=== PATIENT | male | born 1950 | race Two or more races ===

== ENCOUNTER 2023-05-09 05:18 | Emergency (ER) | payer MEDICARE, OTHER ==
[~2023-05-09] VITALS: Ht 167.6 cm; Wt 57.4 kg
[~2023-05-09 05:18] MED LIST: AMIO200T5 PO; CARV3.12 PO; COLC0.6T2 PO; DUTA0.5C PO; ENAL5TAB21 PO; ESOM40CA PO; HYDR50TA8 PO; LEVO50TA PO; TAMS-12 PO; TRAM50TA PO; VALS1TAB6 PO
[2023-05-09] MEDS ORDERED: LIDOCAINE 2% JEL UROJET 10 ML MM ONE (05:50)
[2023-05-09 07:43] LABS: APPEARANCE,URINE CLEAR (CLEAR); BILIRUBIN,URINE NEGATIVE (NEGATIVE); BLOOD, URINE TRACE-INTA Ery/uL (NEGATIVE); COLOR,URINE YELLOW (YELLOW); KETONES,URINE NEGATIVE (NEGATIVE); LEUKOCYTE ESTERASE ,URINE NEGATIVE (NEGATIVE); NITRITE, URINE NEGATIVE (NEGATIVE); PH,URINE 5.5 (5.0-8.0); PROTEIN,URINE NEGATIVE (NEGATIVE); UGLUCOSE NEGATIVE (NEGATIVE); UROBILINOGEN,URINE 0.2 EU/dL (0.2)
[2023-05-09 08:36] LABS: CALCIUM, SERUM 8.6 mg/dL (8.5-10.1); CARBON DIOXIDE 19 mmol/L (21-32); CHLORIDE 109 mmol/L (98-107); CREATININE 1.4 mg/dL (0.6-1.3); GLUCOSE 79 mg/dL (74-106); POTASSIUM 4.3 mmol/L (3.5-5.1); SODIUM SERUM 138 mmol/L (136-145); UREA NITROGEN, BLOOD 16 mg/dL (7-18)
[2023-05-09 08:41] LABS: ALANINE AMINOTRANSFERASE 43 U/L (12-78); ALBUMIN 2.7 g/dL (3.4-5.0); ALKALINE PHOSPHATASE 96 U/L (46-116); ASPARTATE AMINOTRANSFERASE 42 U/L (15-37); BILIRUBIN,DIRECT 0.1 mg/dL (0.0-0.2); BILIRUBIN,TOTAL 0.3 mg/dL (0.2-1.0); TOTAL PROTEIN, SERUM 5.8 g/dL (6.4-8.2)
[2023-05-09 09:23] LABS: BASOPHILS % (AUTO) 0.6 % (0.0-2.0); EOSINOPHILS # (AUTO) 0.1 K/uL (0.0-0.7); EOSINOPHILS % (AUTO) 2.2 % (0.0-6.0); HEMATOCRIT 25 % (39-51); HEMOGLOBIN 8.2 g/dL (13.5-17.5); LYMPHOCYTES # (AUTO) 0.4 K/uL (0.8-4.8); LYMPHOCYTES % (AUTO) 10.4 % (20.0-44.0); MEAN CORPUSCULAR HEMOGLOBIN 32 PG (26.0-33.0); MEAN CORPUSCULAR HGB CONC 32 g/dl (31.0-36.0); MEAN CORPUSCULAR VOLUME 98 fL (80-96); MONOCYTES # (AUTO) 0.4 K/uL (0.1-1.30); NEUTROPHILS # (AUTO) 2.9 K/uL (1.8-8.9); NEUTROPHILS % (AUTO) 75.8 % (43.0-81.0); PLATELET COUNT (AUTO) 150 K/uL (150-450); RED BLOOD CELL COUNT(AUTO) 2.59 MIL/uL (4.5-6.0); RED CELL DISTRIBUTION WIDTH 24.2 % (11.5-15.0); WHITE BLOOD COUNT (AUTO) 3.8 K/uL (4.3-11.0)
[2023-05-09 10:40] VITALS: BP 127/67; TEMP 98.1; O2SAT 98
== END 2023-05-09 10:41 | disposition home or self-care (01) ==
LOC: ER 05:29
DX: R33.9 Retention of urine, unspecified (principal); R06.02 Shortness of breath; R53.83 Other fatigue; I10 Essential (primary) hypertension; Z79.899 Other long term (current) drug therapy; Z85.46 Personal history of malignant neoplasm of prostate; Z85.118 Personal history of other malignant neoplasm of bronchus and lung
CPT/HCPCS: 99285; 71045; 51702; 85025; 80048; 87086; 80076; 81003; 36415; 84484; 83880; 93005; J3490

== ENCOUNTER 2024-05-10 12:32 | Inpatient (IN) | payer MEDICARE, OTHER ==
[~2024-05-10] VITALS: Ht 167.6 cm; Wt 54.0 kg
[2024-05-10] MEDS ORDERED: LORAZEPAM INJ 2 MG/ML VIAL ONE (16:23)
[2024-05-10] MEDS: LORAZEPAM INJ 2 MG/ML VIAL IV ONE ×2 (16:28→16:34)
[2024-05-10] MEDS ORDERED: MAGNESIUM HYDROXIDE 30 ML UDC PO PRN (16:30)
[2024-05-10] MEDS ORDERED: ACETAMINOPHEN 325 MG TABLET PO PRN (16:30)
[2024-05-10] MEDS ORDERED: Z GUARD REMEDY 4 OZ OINT TP PRN (16:30)
[2024-05-10] MEDS ORDERED: MAG HYDROX/AL HYDROX/SIMETH 30 ML UDC PO PRN (16:30)
[2024-05-10] MEDS ORDERED: ONDANSETRON HCL/PF 4 MG/2 ML VIAL IVP PRN (16:30)
[2024-05-10] MEDS ORDERED: ROSU20TA32 PO (16:45)
[2024-05-10] MEDS ORDERED: ASPI-1420 PO (16:45)
[2024-05-10] MEDS ORDERED: ZOLP5TAB2 PO (16:45)
[2024-05-10] MEDS ORDERED: FOLI0.4T6 PO (16:45)
[2024-05-10] MEDS ORDERED: FERR325T24 PO (16:45)
[2024-05-10] MEDS ORDERED: TERA2CAP4 PO (16:45)
[2024-05-10] MEDS ORDERED: OMEP40CA21 PO (16:45)
[2024-05-10 16:56] LABS: BASOPHILS % (AUTO) 0.5 % (0.0-2.0); EOSINOPHILS # (AUTO) 0.1 K/uL (0.0-0.7); EOSINOPHILS % (AUTO) 1.5 % (0.0-6.0); HEMATOCRIT 34 % (39-51); HEMOGLOBIN 10.9 g/dL (13.5-17.5); LYMPHOCYTES # (AUTO) 0.7 K/uL (0.8-4.8); LYMPHOCYTES % (AUTO) 9.1 % (20.0-44.0); MEAN CORPUSCULAR HEMOGLOBIN 28 PG (26.0-33.0); MEAN CORPUSCULAR HGB CONC 32 g/dl (31.0-36.0); MEAN CORPUSCULAR VOLUME 87 fL (80-96); MONOCYTES # (AUTO) 0.5 K/uL (0.1-1.30); MONOCYTES % (AUTO) 6.6 % (2.0-12.0); NEUTROPHILS # (AUTO) 6.6 K/uL (1.8-8.9); NEUTROPHILS % (AUTO) 82.3 % (43.0-81.0); PLATELET COUNT (AUTO) 196 K/uL (150-450); RED BLOOD CELL COUNT(AUTO) 3.94 MIL/uL (4.5-6.0); RED CELL DISTRIBUTION WIDTH 15.6 % (11.5-15.0)
[2024-05-10 17:14] LABS: CALCIUM, SERUM 9.6 mg/dL (8.5-10.1); CARBON DIOXIDE 18 mmol/L (21-32); CHLORIDE 104 mmol/L (98-107); CREATININE 1.2 mg/dL (0.6-1.3); GLUCOSE 91 mg/dL (74-106); POTASSIUM 4.5 mmol/L (3.5-5.1); SODIUM SERUM 139 mmol/L (136-145); UREA NITROGEN, BLOOD 24 mg/dL (7-18)
[2024-05-10] MEDS: CEFEPIME 1 GM in IV D5W 50 ML IV SCH (17:22)
[2024-05-10 18:09] LABS: INR 1.16 (0.91-1.10); PARTIAL THROMBOPLASTIN TIME 29.6 SEC (24.3-34.3); PROTHROMBIN TIME 12.2 SECS (9.2-11.1)
[2024-05-10 20:25] VITALS: BP 136/73; TEMP 99
[2024-05-10 21:00] VITALS: O2SAT 98
[2024-05-10] MEDS: CARVEDILOL 3.125 MG TABLET PO SCH (21:40)
[2024-05-10] MEDS: ZOLPIDEM TARTRATE 5 MG TABLET PO SCH (21:40)
[2024-05-10] MEDS: ENALAPRIL MALEATE (5 MG) 5 MG TABLET PO SCH (21:40)
[2024-05-10] MEDS: COLCHICINE 0.6 MG TABLET PO SCH (21:40)
[2024-05-10] MEDS: TAMSULOSIN 0.4 MG CAP.SR.24H PO SCH (21:48)
[2024-05-10] MEDS: TERAZOSIN HCL 1 MG CAPSULE PO SCH (21:48)
[2024-05-10] MEDS: ATORVASTATIN 40 MG TABLET PO SCH (21:49)
[2024-05-10 23:35] VITALS: O2SAT 98
[2024-05-11] VITALS (8 sets, daily range): BP systolic 115–151; BP diastolic 64–76; TEMP 97.5–98.2; O2SAT 93–99
[2024-05-11] MEDS: LORAZEPAM INJ 2 MG/ML VIAL IV PRN (00:28)
[2024-05-11 07:07] LABS: BASOPHILS % (AUTO) 0.7 % (0.0-2.0); EOSINOPHILS % (AUTO) 0.5 % (0.0-6.0); HEMATOCRIT 36 % (39-51); HEMOGLOBIN 11.3 g/dL (13.5-17.5); LYMPHOCYTES # (AUTO) 0.5 K/uL (0.8-4.8); LYMPHOCYTES % (AUTO) 6.3 % (20.0-44.0); MEAN CORPUSCULAR HEMOGLOBIN 28 PG (26.0-33.0); MEAN CORPUSCULAR HGB CONC 31 g/dl (31.0-36.0); MEAN CORPUSCULAR VOLUME 88 fL (80-96); MONOCYTES # (AUTO) 0.6 K/uL (0.1-1.30); MONOCYTES % (AUTO) 7.6 % (2.0-12.0); NEUTROPHILS # (AUTO) 6.2 K/uL (1.8-8.9); NEUTROPHILS % (AUTO) 84.9 % (43.0-81.0); PLATELET COUNT (AUTO) 199 K/uL (150-450); RED BLOOD CELL COUNT(AUTO) 4.09 MIL/uL (4.5-6.0); RED CELL DISTRIBUTION WIDTH 15.4 % (11.5-15.0); WHITE BLOOD COUNT (AUTO) 7.3 K/uL (4.3-11.0)
[2024-05-11] MEDS: LEVOTHYROXINE SODIUM 50 MCG TABLET PO SCH (07:30)
[2024-05-11] MEDS: PANTOPRAZOLE 40 MG TABLET.DR PO SCH (07:30)
[2024-05-11 08:11] LABS: CALCIUM, SERUM 9.6 mg/dL (8.5-10.1); CARBON DIOXIDE 23 mmol/L (21-32); CHLORIDE 107 mmol/L (98-107); CREATININE 1.1 mg/dL (0.6-1.3); GLUCOSE 96 mg/dL (74-106); MAGNESIUM 2.2 mg/dL (1.8-2.4); PHOSPHORUS 3.4 mg/dL (2.5-4.9); POTASSIUM 3.8 mmol/L (3.5-5.1); SODIUM SERUM 138 mmol/L (136-145); UREA NITROGEN, BLOOD 25 mg/dL (7-18)
[2024-05-11] MEDS: ASPIRIN EC 81 MG TABLET.DR PO SCH (08:40)
[2024-05-11] MEDS: DUTASTERIDE (0.5 MG) 0.5 MG CAPSULE PO SCH (08:40)
[2024-05-11] MEDS: AMIODARONE HCL 200 MG TABLET PO SCH (08:41)
[2024-05-11] MEDS: FERROUS SULFATE (325 MG) 325 MG/TAB TABLET PO SCH (08:41)
[2024-05-11] MEDS: FOLIC ACID 1 MG TABLET PO SCH (08:42)
[2024-05-11] MEDS: HYDROCHLOROTHIAZIDE 25 MG TABLET PO SCH (08:42)
[2024-05-11] MEDS ORDERED: Medication Not On Formulary EA (Esomeprazole Mag Trihydrate (Nexium) 40 MG) PO SCH (09:00)
[2024-05-11] MEDS ORDERED: VALSARTAN 80 MG TABLET PO SCH (09:00)
[2024-05-11] MEDS: IV D5/0.45 NACL 1,000 ML IV PRN (13:36)
[2024-05-11 16:59] LABS: PROTEIN, BODY FLUID 4.7 G/DL
[2024-05-11 17:33] LABS: WBC, BODY FLUID 776 /cu. mm. (0-200)
[2024-05-11 17:42] LABS: APPEARANCE,SPUN,BODY FLUID CLEAR (CLEAR); TOTAL VOLUME,BODY FLUID 1460 mL
[2024-05-11] MEDS ORDERED: DICLOFENAC TOPICAL 100 GM TUBE TP PRN ×2 (18:00→18:30)
[2024-05-11 19:45] LABS: MACROPHAGES, BODY FLUID 10; POLYNUCLEAR, BODY FLUID 4 % (0-25)
[2024-05-11] MEDS: OLANZAPINE 10 MG VIAL IM ONE (23:53)
[2024-05-12] VITALS (7 sets, daily range): BP systolic 124–151; BP diastolic 68–89; TEMP 98.2–98.8; O2SAT 92–98
[2024-05-12] MEDS ORDERED: AMINO ACIDS IV PRN (11:30)
[2024-05-12] MEDS ORDERED: TPN/PPN PER PHARMACY IV PRN (11:30)
[2024-05-12] MEDS ORDERED: TPN ADDITIVES IV PRN (11:30)
[2024-05-12] MEDS ORDERED: DEXTROSE 5% IV PRN (11:30)
[2024-05-12] MEDS ORDERED: DEXTROSE 50%-WATER 50 ML DISP.SYRIN IV PRN (12:00)
[2024-05-12] MEDS ORDERED: TPN/PPN PER PHARMACY XX PRN (12:00)
[2024-05-12] MEDS: BLOOD SUGAR DIAGNOSTIC 1 EACH STRIP IN SCH (12:19)
[2024-05-12] MEDS: INSULIN REGULAR, HUMAN 100 UNIT/ML 3 ML VIAL SQ PRN (12:21)
[2024-05-12 12:49] LABS: CALCIUM, SERUM 10.2 mg/dL (8.5-10.1); CARBON DIOXIDE 18 mmol/L (21-32); CHLORIDE 108 mmol/L (98-107); CREATININE 1.1 mg/dL (0.6-1.3); GLUCOSE 147 mg/dL (74-106); MAGNESIUM 2.3 mg/dL (1.8-2.4); PHOSPHORUS 3.4 mg/dL (2.5-4.9); POTASSIUM 3.6 mmol/L (3.5-5.1); SODIUM SERUM 140 mmol/L (136-145); UREA NITROGEN, BLOOD 29 mg/dL (7-18)
[2024-05-12] MEDS: PPN BAG #1 IV SCH ×2 (14:03→14:35)
[2024-05-12] MEDS: OLANZAPINE 10 MG VIAL IM SCH (16:12)
[2024-05-12] MEDS ORDERED: TRAZODONE 50 MG TABLET PO PRN (22:00)
[2024-05-13] VITALS (8 sets, daily range): BP systolic 136–154; BP diastolic 79–107; TEMP 97.9–98.6; O2SAT 94–98
[2024-05-13] MEDS: PPN BAG #2 IV SCH (07:42)
[2024-05-13 07:55] LABS: CALCIUM, SERUM 10.1 mg/dL (8.5-10.1); CARBON DIOXIDE 18 mmol/L (21-32); CHLORIDE 109 mmol/L (98-107); CREATININE 0.9 mg/dL (0.6-1.3); GLUCOSE 134 mg/dL (74-106); MAGNESIUM 2.1 mg/dL (1.8-2.4); PHOSPHORUS 2.2 mg/dL (2.5-4.9); POTASSIUM 3.2 mmol/L (3.5-5.1); SODIUM SERUM 144 mmol/L (136-145); UREA NITROGEN, BLOOD 34 mg/dL (7-18)
[2024-05-13] MEDS: POTASSIUM PHOSPHATE MM 7.5 MMOL in IV NS 0.9% 100 ML IV SCH (09:04)
[2024-05-13] MEDS: POTASSIUM CL. PREMIX PERIPHER. 50 ML IV SCH (15:20)
[2024-05-13 21:51] LABS: TRIGLYCERIDES 71 mg/dL (30-150)
[2024-05-14] VITALS: BP 141/69; TEMP 97.8; O2SAT 96
[2024-05-14] MEDS ORDERED: PPN BAG #3 IV SCH (00:13)
[2024-05-14] MEDS: PPN BAG #3 IV SCH (00:20)
[2024-05-14 04:00] VITALS: BP 136/61; TEMP 97.9; O2SAT 96
[2024-05-14 07:22] LABS: BASOPHILS % (AUTO) 0.1 % (0.0-2.0); HEMATOCRIT 34 % (39-51); HEMOGLOBIN 10.9 g/dL (13.5-17.5); LYMPHOCYTES # (AUTO) 0.5 K/uL (0.8-4.8); LYMPHOCYTES % (AUTO) 4.9 % (20.0-44.0); MEAN CORPUSCULAR HEMOGLOBIN 28 PG (26.0-33.0); MEAN CORPUSCULAR HGB CONC 33 g/dl (31.0-36.0); MEAN CORPUSCULAR VOLUME 85 fL (80-96); MONOCYTES # (AUTO) 0.9 K/uL (0.1-1.30); MONOCYTES % (AUTO) 8.7 % (2.0-12.0); NEUTROPHILS # (AUTO) 8.8 K/uL (1.8-8.9); NEUTROPHILS % (AUTO) 86.3 % (43.0-81.0); PLATELET COUNT (AUTO) 236 K/uL (150-450); RED BLOOD CELL COUNT(AUTO) 3.93 MIL/uL (4.5-6.0); RED CELL DISTRIBUTION WIDTH 15.4 % (11.5-15.0); WHITE BLOOD COUNT (AUTO) 10.1 K/uL (4.3-11.0)
[2024-05-14 08:00] VITALS: BP 142/91; TEMP 98.1; O2SAT 96
[2024-05-14 08:07] LABS: CALCIUM, SERUM 10.3 mg/dL (8.5-10.1); CARBON DIOXIDE 16 mmol/L (21-32); CHLORIDE 111 mmol/L (98-107); CREATININE 1.1 mg/dL (0.6-1.3); GLUCOSE 125 mg/dL (74-106); MAGNESIUM 2.1 mg/dL (1.8-2.4); PHOSPHORUS 2.9 mg/dL (2.5-4.9); POTASSIUM 3.2 mmol/L (3.5-5.1); SODIUM SERUM 143 mmol/L (136-145); UREA NITROGEN, BLOOD 44 mg/dL (7-18)
[2024-05-14] MEDS: CEFEPIME 2 GM in IV D5W 100 ML IV SCH (10:31)
[2024-05-14] MEDS: POTASSIUM CL. PREMIX PERIPHER. 50 ML IV SCH (10:32)
[2024-05-14 12:00] VITALS: BP 155/76; TEMP 97.7; O2SAT 99
== END 2024-05-14 13:30 | disposition short-term general hospital (02) | DRG 180 ==
LOC: ER 12:35 → TELE1 19:48
PROVIDERS: ADMIT Nurse Practitioner Acute Care; ATTEND Internal Medicine
PROC: 0W993ZZ Drainage of Right Pleural Cavity, Percutaneous Approach (ICD-10-PCS; principal; 2024-05-11)
DX: C34.82 Malignant neoplasm of overlapping sites of left bronchus and lung (principal); J69.0 Pneumonitis due to inhalation of food and vomit; J96.01 Acute respiratory failure with hypoxia; C79.9 Secondary malignant neoplasm of unspecified site; J91.0 Malignant pleural effusion; N17.9 Acute kidney failure, unspecified; G93.40 Encephalopathy, unspecified; J98.11 Atelectasis; D64.9 Anemia, unspecified; E86.0 Dehydration; I50.9 Heart failure, unspecified; N40.0 Benign prostatic hyperplasia without lower urinary tract symptoms; C34.81 Malignant neoplasm of overlapping sites of right bronchus and lung; Z95.1 Presence of aortocoronary bypass graft; Z95.0 Presence of cardiac pacemaker; Z85.89 Personal history of malignant neoplasm of other organs and systems; Z85.46 Personal history of malignant neoplasm of prostate; Z85.21 Personal history of malignant neoplasm of larynx; Z85.819 Personal history of malignant neoplasm of unspecified site of lip, oral cavity, and pharynx; Z87.442 Personal history of urinary calculi; I25.10 Atherosclerotic heart disease of native coronary artery without angina pectoris; I11.0 Hypertensive heart disease with heart failure; M89.8X9 Other specified disorders of bone, unspecified site; F29 Unspecified psychosis not due to a substance or known physiological condition; F03.90 Unspecified dementia, unspecified severity, without behavioral disturbance, psychotic disturbance, mood disturbance, and anxiety; E03.9 Hypothyroidism, unspecified; I48.91 Unspecified atrial fibrillation
CPT/HCPCS: 31720; 36415; 70450-TC; 71045-TC; 71250-TC; 80048-TC; 82962-TC; 83735-TC; 84100-TC; 84478-TC; 85025-TC; 85730-TC; 87102-TC; 88108-TC; 88305-TC; 88341; 88342; 89051-TC; 92526; 92611-TC; 93307-TC; 94003-TC; 94760-TC; 94799-TC; A4223; A6403; G0378; J0692; J1815; J2060; J3480; J3490; J7030; J7050; J7060

== ENCOUNTER 2024-05-19 14:19 | Inpatient (IN) | payer MEDICARE, OTHER ==
[~2024-05-19] VITALS: Ht 170.2 cm; Wt 57.6 kg
[2024-05-19 08:30] VITALS: BP 116/57; TEMP 98.6; O2SAT 97
[~2024-05-19 14:19] MED LIST changes: -AMIO200T5 PO; +ASPI-1420 PO; -COLC0.6T2 PO; -DUTA0.5C PO; -ENAL5TAB21 PO; -ESOM40CA PO; +FERR325T24 PO; +FOLI0.4T6 PO; -HYDR50TA8 PO; +OMEP40CA21 PO; +ROSU20TA32 PO; -TAMS-12 PO; +TERA2CAP4 PO; -VALS1TAB6 PO; +ZOLP5TAB2 PO
[2024-05-19] MEDS ORDERED: Z GUARD REMEDY 4 OZ OINT TP PRN (22:00)
[2024-05-19] MEDS ORDERED: ONDANSETRON HCL/PF 4 MG/2 ML VIAL IVP PRN (22:00)
[2024-05-20] VITALS (8 sets, daily range): BP systolic 126–148; BP diastolic 70–83; TEMP 98–98.4; O2SAT 95–100
[2024-05-20] MEDS: LORAZEPAM INJ 2 MG/ML VIAL IV ONE (01:39)
[2024-05-20] MEDS: IV NS 0.9% 1,000 ML IV PRN (01:39)
[2024-05-20] MEDS ORDERED: METO5VIA3 IVP (08:39)
[2024-05-20] MEDS ORDERED: SENN8.6T19 PO (08:39)
[2024-05-20] MEDS ORDERED: LEVO100T9 PO (08:39)
[2024-05-20] MEDS ORDERED: MEGE40TA5 PO (08:39)
[2024-05-20] MEDS ORDERED: POLY17PO4 PO (08:39)
[2024-05-20] MEDS ORDERED: ACET-868 PO (08:39)
[2024-05-20] MEDS ORDERED: DIPH25TA25 PO (08:39)
[2024-05-20] MEDS ORDERED: CETI-90 PO (08:39)
[2024-05-20] MEDS ORDERED: QUET25TA PO (08:39)
[2024-05-20] MEDS ORDERED: EZET10TA15 PO (08:39)
[2024-05-20] MEDS ORDERED: IBUP-1955 PO (08:39)
[2024-05-20] MEDS ORDERED: MELA3TAB41 PO (08:39)
[2024-05-20] MEDS ORDERED: ALBU2.5V38 IH (08:39)
[2024-05-20] MEDS ORDERED: ONDA4AMP IVP (08:39)
[2024-05-20] MEDS ORDERED: HYDRALAZINE HCL IV (08:39)
[2024-05-20] MEDS ORDERED: TRAZ-182 PO (08:39)
[2024-05-20] MEDS ORDERED: IPRA0.2S49 IH (08:39)
[2024-05-20] MEDS ORDERED: THIA100T68 PO (08:40)
[2024-05-20] MEDS: PANTOPRAZOLE 40 MG VIAL IV SCH (08:41)
[2024-05-20] MEDS: ALBUTEROL HALF STRENGTH 1.25 MG/3 ML VIAL.NEB NEB SCH (09:30)
[2024-05-20] MEDS: IPRATROPIUM NEB FS 0.5 MG/2.5 ML AMPUL.NEB NEB SCH (09:30)
[2024-05-20 12:20] LABS: ABG BASE EXCESS -1.1 mmol/L (-2.0-3.0); ABG OXYGEN SATURATION 92.3 % (94.0-98.0); ABG PCO2 26.4 mmHg (35.0-48.0); ABG PH 7.517 (7.350-7.450); ABG PO2 63.3 mmHg (83.0-108.0); ABG TOTAL HEMOGLOBIN 10.2 G/dL (13.5-17.5); AaDO2 105.2 mmHg; COHb 0.3 % (0.5-1.5); MetHb 0.3 % (0.0-1.5); O2Hb 91.7 % (94.0-97.0); SITE, ABG Right Brachial; VENT MODE, BG 28% O2
[2024-05-20] MEDS: HALOPERIDOL 1 MG TABLET GT SCH (17:24)
[2024-05-20 19:07] LABS: CALCIUM, SERUM 8.4 mg/dL (8.5-10.1); CARBON DIOXIDE 19 mmol/L (21-32); CHLORIDE 112 mmol/L (98-107); CREATININE 0.7 mg/dL (0.6-1.3); GLUCOSE 80 mg/dL (74-106); POTASSIUM 3.7 mmol/L (3.5-5.1); SODIUM SERUM 143 mmol/L (136-145); UREA NITROGEN, BLOOD 20 mg/dL (7-18)
[2024-05-21] VITALS (19 sets, daily range): BP systolic 111–148; BP diastolic 62–72; TEMP 98–98.4; O2SAT 95–100
[2024-05-21 09:59] LABS: CALCIUM, SERUM 8.3 mg/dL (8.5-10.1); CARBON DIOXIDE 17 mmol/L (21-32); CHLORIDE 112 mmol/L (98-107); CREATININE 0.8 mg/dL (0.6-1.3); GLUCOSE 64 mg/dL (74-106); POTASSIUM 3.8 mmol/L (3.5-5.1); SODIUM SERUM 144 mmol/L (136-145); UREA NITROGEN, BLOOD 17 mg/dL (7-18)
[2024-05-21 10:13] LABS: BILIRUBIN,DIRECT 0.1 mg/dL (0.0-0.2); BILIRUBIN,TOTAL 0.9 mg/dL (0.2-1.0); MAGNESIUM 1.9 mg/dL (1.8-2.4); PHOSPHORUS 2.8 mg/dL (2.5-4.9); TOTAL PROTEIN, SERUM 5.6 g/dL (6.4-8.2)
[2024-05-21 10:21] LABS: THYROID STIMULATING HORMONE 6.59 uIU/mL (0.358-3.74)
[2024-05-21] MEDS ORDERED: VITAL AF 1.2 1,000 ML BOTTLE GT PRN (10:30)
[2024-05-21] MEDS ORDERED: CEFEPIME 1 GM in IV D5W 50 ML IV SCH (11:00)
[2024-05-21 11:09] LABS: THYROID STIMULATING HORMONE 6.59 uIU/mL (0.358-3.74)
[2024-05-21] MEDS: VANCOMYCIN 1.5 GM in IV D5W 500 ML IV ONE (11:28)
[2024-05-21] MEDS: DAKINS HALF STRENGTH (0.25%) 480 ML BOTTLE TOP SCH (11:29)
[2024-05-21] MEDS: HALOPERIDOL 1 MG TABLET NG SCH (12:25)
[2024-05-21 12:57] LABS: BASOPHILS # (AUTO) 0.1 K/uL (0.0-0.2); BASOPHILS % (AUTO) 0.5 % (0.0-2.0); EOSINOPHILS % (AUTO) 0.4 % (0.0-6.0); HEMATOCRIT 29 % (39-51); HEMOGLOBIN 9.1 g/dL (13.5-17.5); LYMPHOCYTES # (AUTO) 0.6 K/uL (0.8-4.8); LYMPHOCYTES % (AUTO) 5.4 % (20.0-44.0); MEAN CORPUSCULAR HEMOGLOBIN 28 PG (26.0-33.0); MEAN CORPUSCULAR HGB CONC 32 g/dl (31.0-36.0); MEAN CORPUSCULAR VOLUME 87 fL (80-96); MONOCYTES # (AUTO) 0.6 K/uL (0.1-1.30); MONOCYTES % (AUTO) 4.8 % (2.0-12.0); NEUTROPHILS # (AUTO) 10.5 K/uL (1.8-8.9); NEUTROPHILS % (AUTO) 88.9 % (43.0-81.0); PLATELET COUNT (AUTO) 145 K/uL (150-450); RED BLOOD CELL COUNT(AUTO) 3.27 MIL/uL (4.5-6.0); RED CELL DISTRIBUTION WIDTH 16.7 % (11.5-15.0); WHITE BLOOD COUNT (AUTO) 11.9 K/uL (4.3-11.0)
[2024-05-21] MEDS: CEFEPIME 2 GM in IV D5W 100 ML IV SCH (13:53)
[2024-05-21] MEDS ORDERED: IPRATROPIUM NEB FS 0.5 MG/2.5 ML AMPUL.NEB IH PRN (15:00)
[2024-05-21] MEDS: MEGESTROL ACETATE 40 MG TABLET PO SCH (16:22)
[2024-05-21] MEDS: CARVEDILOL 3.125 MG TABLET PO SCH (16:23)
[2024-05-21] MEDS: TERAZOSIN HCL 1 MG CAPSULE PO SCH (17:22)
[2024-05-21] MEDS: QUETIAPINE FUMARATE 25 MG TABLET PO PRN (21:25)
[2024-05-21] MEDS: SENNOSIDES 8.6 MG TABLET PO SCH (21:25)
[2024-05-21] MEDS: TRAZODONE 50 MG TABLET NG SCH (21:25)
[2024-05-21] MEDS ORDERED: Medication Not On Formulary EA (Melatonin 3 MG) PO SCH (22:00)
[2024-05-21] MEDS: OLANZAPINE 10 MG VIAL IM ONE (22:39)
[2024-05-21] MEDS: VANCOMYCIN 750 MG in IV D5W 250 ML IV SCH (23:11)
[2024-05-22] VITALS (15 sets, daily range): BP systolic 126–151; BP diastolic 64–97; TEMP 98–98.2; O2SAT 97–100
[2024-05-22] MEDS: LORAZEPAM INJ 2 MG/ML VIAL IM ONE (02:29)
[2024-05-22] MEDS: ASPIRIN EC 81 MG TABLET.DR PO SCH (08:44)
[2024-05-22] MEDS: POLYETHYLENE GLYCOL 3350 17 GM POWD.PACK PO SCH (08:44)
[2024-05-22] MEDS: ATORVASTATIN 40 MG TABLET PO SCH (08:45)
[2024-05-22] MEDS: FOLIC ACID 1 MG TABLET PO SCH (08:45)
[2024-05-22] MEDS: LEVOTHYROXINE SODIUM 100 MCG TABLET PO SCH (08:45)
[2024-05-22] MEDS: EZETIMIBE 10 MG TABLET PO SCH (08:45)
[2024-05-22] MEDS: THIAMINE HCL 100 MG TABLET PO SCH (08:45)
[2024-05-22] MEDS: FERROUS SULFATE (325 MG) 325 MG/TAB TABLET PO SCH (08:45)
[2024-05-22] MEDS ORDERED: Medication Not On Formulary EA (Omeprazole 40 MG) PO SCH (09:00)
[2024-05-22 09:36] LABS: BASOPHILS % (AUTO) 0.4 % (0.0-2.0); EOSINOPHILS # (AUTO) 0.1 K/uL (0.0-0.7); EOSINOPHILS % (AUTO) 1.1 % (0.0-6.0); HEMATOCRIT 33 % (39-51); HEMOGLOBIN 9.9 g/dL (13.5-17.5); LYMPHOCYTES # (AUTO) 0.5 K/uL (0.8-4.8); LYMPHOCYTES % (AUTO) 4.4 % (20.0-44.0); MEAN CORPUSCULAR HEMOGLOBIN 28 PG (26.0-33.0); MEAN CORPUSCULAR HGB CONC 30 g/dl (31.0-36.0); MEAN CORPUSCULAR VOLUME 92 fL (80-96); MONOCYTES # (AUTO) 0.8 K/uL (0.1-1.30); MONOCYTES % (AUTO) 6.5 % (2.0-12.0); NEUTROPHILS # (AUTO) 10.7 K/uL (1.8-8.9); NEUTROPHILS % (AUTO) 87.6 % (43.0-81.0); PLATELET COUNT (AUTO) 134 K/uL (150-450); RED BLOOD CELL COUNT(AUTO) 3.57 MIL/uL (4.5-6.0); RED CELL DISTRIBUTION WIDTH 17.6 % (11.5-15.0); WHITE BLOOD COUNT (AUTO) 12.2 K/uL (4.3-11.0)
[2024-05-22 09:44] LABS: CALCIUM, SERUM 8.5 mg/dL (8.5-10.1); CARBON DIOXIDE 17 mmol/L (21-32); CHLORIDE 112 mmol/L (98-107); CREATININE 0.9 mg/dL (0.6-1.3); GLUCOSE 104 mg/dL (74-106); POTASSIUM 3.2 mmol/L (3.5-5.1); SODIUM SERUM 145 mmol/L (136-145); UREA NITROGEN, BLOOD 19 mg/dL (7-18)
[2024-05-22] MEDS ORDERED: POTASSIUM CHLORIDE 20 MEQ TAB.PRT.SR PO ONE (19:00)
[2024-05-22] MEDS: POTASSIUM CHLORIDE 20 MEQ TAB.PRT.SR PO ONE (19:44)
[2024-05-23] VITALS (16 sets, daily range): BP systolic 112–129; BP diastolic 67–68; TEMP 97.9–98.1; O2SAT 96–100
[2024-05-23 06:59] LABS: BASOPHILS % (AUTO) 0.2 % (0.0-2.0); EOSINOPHILS # (AUTO) 0.2 K/uL (0.0-0.7); EOSINOPHILS % (AUTO) 1.3 % (0.0-6.0); HEMATOCRIT 29 % (39-51); HEMOGLOBIN 8.8 g/dL (13.5-17.5); LYMPHOCYTES # (AUTO) 0.5 K/uL (0.8-4.8); LYMPHOCYTES % (AUTO) 4.1 % (20.0-44.0); MEAN CORPUSCULAR HEMOGLOBIN 27 PG (26.0-33.0); MEAN CORPUSCULAR HGB CONC 30 g/dl (31.0-36.0); MEAN CORPUSCULAR VOLUME 90 fL (80-96); MONOCYTES # (AUTO) 0.6 K/uL (0.1-1.30); NEUTROPHILS # (AUTO) 10.2 K/uL (1.8-8.9); NEUTROPHILS % (AUTO) 89.4 % (43.0-81.0); PLATELET COUNT (AUTO) 138 K/uL (150-450); RED BLOOD CELL COUNT(AUTO) 3.23 MIL/uL (4.5-6.0); RED CELL DISTRIBUTION WIDTH 17.2 % (11.5-15.0); WHITE BLOOD COUNT (AUTO) 11.4 K/uL (4.3-11.0)
[2024-05-23 07:13] LABS: CALCIUM, SERUM 8.4 mg/dL (8.5-10.1); CARBON DIOXIDE 17 mmol/L (21-32); CHLORIDE 114 mmol/L (98-107); CREATININE 1.2 mg/dL (0.6-1.3); GLUCOSE 100 mg/dL (74-106); POTASSIUM 3.1 mmol/L (3.5-5.1); SODIUM SERUM 143 mmol/L (136-145); UREA NITROGEN, BLOOD 23 mg/dL (7-18)
[2024-05-23] MEDS: PANTOPRAZOLE 40 MG TABLET.DR PO SCH (09:21)
[2024-05-23] MEDS: VANCOMYCIN 500 MG in IV D5W 100ml IV SCH (09:34)
[2024-05-23] MEDS: POTASSIUM CHLORIDE 20 MEQ TAB.PRT.SR PO SCH (11:18)
[2024-05-24] VITALS (12 sets, daily range): BP systolic 97–120; BP diastolic 77–87; TEMP 97.2–98.1; O2SAT 95–99
[2024-05-24 06:06] LABS: FOLIC ACID 12.7 ng/mL (>3.0)
[2024-05-24 06:57] LABS: BASOPHILS % (AUTO) 0.3 % (0.0-2.0); EOSINOPHILS # (AUTO) 0.2 K/uL (0.0-0.7); EOSINOPHILS % (AUTO) 1.5 % (0.0-6.0); HEMATOCRIT 29 % (39-51); HEMOGLOBIN 8.8 g/dL (13.5-17.5); LYMPHOCYTES # (AUTO) 0.7 K/uL (0.8-4.8); LYMPHOCYTES % (AUTO) 6.9 % (20.0-44.0); MEAN CORPUSCULAR HEMOGLOBIN 28 PG (26.0-33.0); MEAN CORPUSCULAR HGB CONC 31 g/dl (31.0-36.0); MEAN CORPUSCULAR VOLUME 89 fL (80-96); MONOCYTES # (AUTO) 0.6 K/uL (0.1-1.30); MONOCYTES % (AUTO) 5.4 % (2.0-12.0); NEUTROPHILS % (AUTO) 85.9 % (43.0-81.0); PLATELET COUNT (AUTO) 155 K/uL (150-450); WHITE BLOOD COUNT (AUTO) 10.5 K/uL (4.3-11.0)
[2024-05-24 07:12] LABS: CALCIUM, SERUM 8.7 mg/dL (8.5-10.1); CARBON DIOXIDE 14 mmol/L (21-32); CHLORIDE 118 mmol/L (98-107); CREATININE 1.3 mg/dL (0.6-1.3); GLUCOSE 84 mg/dL (74-106); POTASSIUM 3.8 mmol/L (3.5-5.1); SODIUM SERUM 151 mmol/L (136-145); UREA NITROGEN, BLOOD 25 mg/dL (7-18)
[2024-05-24 12:09] LABS: INR 1.35 (0.91-1.10); PARTIAL THROMBOPLASTIN TIME 24.5 SEC (24.3-34.3)
[2024-05-24] MEDS: CEFEPIME 2 GM in IV D5W 100 ML IV SCH (21:08)
[2024-05-25] VITALS (17 sets, daily range): BP systolic 116–152; BP diastolic 36–72; TEMP 95–98; O2SAT 98–100
[2024-05-25] MEDS: ALBUTEROL FS 2.5 MG/3 ML VIAL.NEB IH PRN (03:51)
[2024-05-25 06:18] LABS: BASOPHILS % (AUTO) 0.3 % (0.0-2.0); EOSINOPHILS % (AUTO) 0.3 % (0.0-6.0); HEMATOCRIT 28 % (39-51); HEMOGLOBIN 8.7 g/dL (13.5-17.5); LYMPHOCYTES # (AUTO) 0.5 K/uL (0.8-4.8); LYMPHOCYTES % (AUTO) 6.1 % (20.0-44.0); MEAN CORPUSCULAR HEMOGLOBIN 28 PG (26.0-33.0); MEAN CORPUSCULAR HGB CONC 31 g/dl (31.0-36.0); MEAN CORPUSCULAR VOLUME 91 fL (80-96); MONOCYTES # (AUTO) 0.6 K/uL (0.1-1.30); MONOCYTES % (AUTO) 6.4 % (2.0-12.0); NEUTROPHILS # (AUTO) 7.8 K/uL (1.8-8.9); NEUTROPHILS % (AUTO) 86.9 % (43.0-81.0); PLATELET COUNT (AUTO) 143 K/uL (150-450); RED BLOOD CELL COUNT(AUTO) 3.12 MIL/uL (4.5-6.0); RED CELL DISTRIBUTION WIDTH 17.9 % (11.5-15.0)
[2024-05-25 06:51] LABS: CALCIUM, SERUM 8.9 mg/dL (8.5-10.1); CARBON DIOXIDE 13 mmol/L (21-32); CHLORIDE 123 mmol/L (98-107); CREATININE 1.4 mg/dL (0.6-1.3); GLUCOSE 88 mg/dL (74-106); POTASSIUM 3.4 mmol/L (3.5-5.1); SODIUM SERUM 152 mmol/L (136-145); UREA NITROGEN, BLOOD 27 mg/dL (7-18)
[2024-05-25 08:10] LABS: APPEARANCE,URINE TURBID (CLEAR); BILIRUBIN,URINE 1+ (NEGATIVE); BLOOD, URINE 3+ Ery/uL (NEGATIVE); COLOR,URINE AMBER (YELLOW); KETONES,URINE TRACE mg/dL (NEGATIVE); LEUKOCYTE ESTERASE ,URINE TRACE (NEGATIVE); NITRITE, URINE POSITIVE (NEGATIVE); PH,URINE 5.5 (5.0-8.0); PROTEIN,URINE 2+ mg/dl (NEGATIVE); UGLUCOSE NEGATIVE (NEGATIVE); UROBILINOGEN,URINE 0.2 EU/dL (0.2)
[2024-05-25 08:12] LABS: ADD URINE CULTURE YES; BACTERIA,URINE Moderate /HPF (None Seen); RBC,URINE 21-50 /HPF (0-2); SQUAMOUS EPITHELIAL CELL,UR Few /HPF (None Seen)
[2024-05-25] MEDS ORDERED: VANCOMYCIN 500 MG in IV D5W 100ml IV SCH (09:00)
[2024-05-25] MEDS: IV D5W 1,000 ML IV PRN (09:23)
[2024-05-25] MEDS ORDERED: ALBUTEROL FS 2.5 MG/3 ML VIAL.NEB IH PRN (09:47)
[2024-05-25] MEDS ORDERED: POTASSIUM CHLORIDE 20 MEQ TAB.PRT.SR PO SCH (10:00)
[2024-05-25] MEDS: POTASSIUM CL. PREMIX PERIPHER. 50 ML IV SCH (10:25)
[2024-05-25] MEDS: VANCOMYCIN 750 MG in IV D5W 250 ML IV SCH (11:56)
[2024-05-25] MEDS: HALOPERIDOL 1 MG TABLET NG SCH (13:00)
[2024-05-25] MEDS ORDERED: LIDOCAINE 1% INJ 50 ML MDV IJ ONE (15:51)
[2024-05-25] MEDS ORDERED: FENTANYL PF 100MCG/2ML AMPUL ONE (16:30)
[2024-05-25] MEDS ORDERED: VASOPRESSIN INJ 20 UNIT/ML VIAL ONE (16:32)
[2024-05-26] VITALS (17 sets, daily range): BP systolic 112–117; BP diastolic 55–68; TEMP 97–98; O2SAT 97–100
[2024-05-26] MEDS: ENSURE ENLIVE 237 ML LIQUID (VANILLA) PO SCH (09:47)
[2024-05-26 10:32] LABS: BASOPHILS % (AUTO) 0.4 % (0.0-2.0); EOSINOPHILS # (AUTO) 0.2 K/uL (0.0-0.7); EOSINOPHILS % (AUTO) 2.2 % (0.0-6.0); HEMATOCRIT 27 % (39-51); HEMOGLOBIN 7.9 g/dL (13.5-17.5); LYMPHOCYTES # (AUTO) 0.7 K/uL (0.8-4.8); LYMPHOCYTES % (AUTO) 9.4 % (20.0-44.0); MEAN CORPUSCULAR HEMOGLOBIN 28 PG (26.0-33.0); MEAN CORPUSCULAR HGB CONC 30 g/dl (31.0-36.0); MEAN CORPUSCULAR VOLUME 95 fL (80-96); MONOCYTES # (AUTO) 0.4 K/uL (0.1-1.30); MONOCYTES % (AUTO) 5.7 % (2.0-12.0); NEUTROPHILS # (AUTO) 6.3 K/uL (1.8-8.9); NEUTROPHILS % (AUTO) 82.3 % (43.0-81.0); PLATELET COUNT (AUTO) 134 K/uL (150-450); RED CELL DISTRIBUTION WIDTH 18.4 % (11.5-15.0); WHITE BLOOD COUNT (AUTO) 7.7 K/uL (4.3-11.0)
[2024-05-26 10:41] LABS: CALCIUM, SERUM 7.8 mg/dL (8.5-10.1); CARBON DIOXIDE 18 mmol/L (21-32); CHLORIDE 120 mmol/L (98-107); CREATININE 1.3 mg/dL (0.6-1.3); GLUCOSE 120 mg/dL (74-106); SODIUM SERUM 148 mmol/L (136-145); UREA NITROGEN, BLOOD 23 mg/dL (7-18)
[2024-05-26 10:52] LABS: MAGNESIUM 1.6 mg/dL (1.8-2.4); PHOSPHORUS 2.4 mg/dL (2.5-4.9)
[2024-05-26] MEDS: K PHOS NEUTRAL 250 MG TABLET PO ONE (16:00)
[2024-05-27] VITALS (12 sets, daily range): BP systolic 118–131; BP diastolic 55–65; TEMP 97.5–98; O2SAT 96–100
[2024-05-27 06:29] LABS: BASOPHILS % (AUTO) 0.4 % (0.0-2.0); EOSINOPHILS # (AUTO) 0.2 K/uL (0.0-0.7); EOSINOPHILS % (AUTO) 2.4 % (0.0-6.0); HEMATOCRIT 27 % (39-51); HEMOGLOBIN 8.6 g/dL (13.5-17.5); LYMPHOCYTES # (AUTO) 0.8 K/uL (0.8-4.8); LYMPHOCYTES % (AUTO) 10.2 % (20.0-44.0); MEAN CORPUSCULAR HEMOGLOBIN 28 PG (26.0-33.0); MEAN CORPUSCULAR HGB CONC 32 g/dl (31.0-36.0); MEAN CORPUSCULAR VOLUME 87 fL (80-96); MONOCYTES # (AUTO) 0.6 K/uL (0.1-1.30); MONOCYTES % (AUTO) 7.5 % (2.0-12.0); NEUTROPHILS # (AUTO) 6.3 K/uL (1.8-8.9); NEUTROPHILS % (AUTO) 79.5 % (43.0-81.0); PLATELET COUNT (AUTO) 134 K/uL (150-450); RED BLOOD CELL COUNT(AUTO) 3.07 MIL/uL (4.5-6.0); RED CELL DISTRIBUTION WIDTH 17.3 % (11.5-15.0); WHITE BLOOD COUNT (AUTO) 7.9 K/uL (4.3-11.0)
[2024-05-27 06:56] LABS: CARBON DIOXIDE 18 mmol/L (21-32); CHLORIDE 116 mmol/L (98-107); CREATININE 1.3 mg/dL (0.6-1.3); GLUCOSE 98 mg/dL (74-106); MAGNESIUM 1.3 mg/dL (1.8-2.4); PHOSPHORUS 2.3 mg/dL (2.5-4.9); SODIUM SERUM 146 mmol/L (136-145); UREA NITROGEN, BLOOD 18 mg/dL (7-18)
[2024-05-27 08:06] LABS: POTASSIUM 2.7 mmol/L (3.5-5.1)
[2024-05-27] MEDS ORDERED: TRAZ-252 NG (09:45)
[2024-05-27] MEDS ORDERED: HALO1TAB5 NG (09:45)
[2024-05-27] MEDS ORDERED: CEPH500C2 PO (09:45)
[2024-05-27] MEDS: POTASSIUM CHLORIDE 20 MEQ TAB.PRT.SR PO ONE (10:58)
[2024-05-27] MEDS: Magnesium 1GM/D5W 100ML PREMIX 100 ML IV SCH (11:13)
[2024-05-27] MEDS: POTASSIUM CL. PREMIX PERIPHER. 50 ML IV SCH (12:48)
[2024-05-27] MEDS: K PHOS NEUTRAL 250 MG TABLET PO ONE (15:33)
[2024-05-27 16:34] LABS: CALCIUM, SERUM 7.8 mg/dL (8.5-10.1); CARBON DIOXIDE 19 mmol/L (21-32); CHLORIDE 113 mmol/L (98-107); CREATININE 1.1 mg/dL (0.6-1.3); GLUCOSE 91 mg/dL (74-106); SODIUM SERUM 141 mmol/L (136-145); UREA NITROGEN, BLOOD 18 mg/dL (7-18)
[2024-05-27 16:37] LABS: POTASSIUM 2.7 mmol/L (3.5-5.1)
[2024-05-27] MEDS: ENOXAPARIN SODIUM 60 MG/0.6 ML DISP.SYRIN SQ SCH (18:00)
[2024-05-27] MEDS: VANCOMYCIN 1 GM in IV D5W 250ml IV SCH (22:53)
[2024-05-28] VITALS (18 sets, daily range): BP systolic 110–128; BP diastolic 56–72; TEMP 97.7–98.2; O2SAT 97–100
[2024-05-28 06:32] LABS: BASOPHILS % (AUTO) 0.7 % (0.0-2.0); EOSINOPHILS # (AUTO) 0.2 K/uL (0.0-0.7); EOSINOPHILS % (AUTO) 2.7 % (0.0-6.0); HEMATOCRIT 28 % (39-51); LYMPHOCYTES # (AUTO) 0.9 K/uL (0.8-4.8); LYMPHOCYTES % (AUTO) 11.9 % (20.0-44.0); MEAN CORPUSCULAR HEMOGLOBIN 28 PG (26.0-33.0); MEAN CORPUSCULAR HGB CONC 32 g/dl (31.0-36.0); MEAN CORPUSCULAR VOLUME 85 fL (80-96); MONOCYTES # (AUTO) 0.5 K/uL (0.1-1.30); NEUTROPHILS # (AUTO) 5.8 K/uL (1.8-8.9); NEUTROPHILS % (AUTO) 77.7 % (43.0-81.0); PLATELET COUNT (AUTO) 133 K/uL (150-450); RED BLOOD CELL COUNT(AUTO) 3.28 MIL/uL (4.5-6.0); RED CELL DISTRIBUTION WIDTH 17.3 % (11.5-15.0); WHITE BLOOD COUNT (AUTO) 7.5 K/uL (4.3-11.0)
[2024-05-28 07:49] LABS: CALCIUM, SERUM 8.1 mg/dL (8.5-10.1); CARBON DIOXIDE 20 mmol/L (21-32); CHLORIDE 110 mmol/L (98-107); CREATININE 1.1 mg/dL (0.6-1.3); GLUCOSE 90 mg/dL (74-106); SODIUM SERUM 140 mmol/L (136-145); UREA NITROGEN, BLOOD 15 mg/dL (7-18)
[2024-05-28 08:04] LABS: POTASSIUM 2.5 mmol/L (3.5-5.1)
[2024-05-28 08:11] LABS: INR 1.43 (0.91-1.10); PROTHROMBIN TIME 14.8 SECS (9.2-11.1)
[2024-05-28 08:31] LABS: MAGNESIUM 1.7 mg/dL (1.8-2.4); PHOSPHORUS 2.1 mg/dL (2.5-4.9)
[2024-05-28] MEDS ORDERED: POTASSIUM CHLORIDE 10 MEQ/50 ML PREMIXED IVPB FOR PERIPHERAL LINE IV ONE (09:00)
[2024-05-28] MEDS: POTASSIUM CHLORIDE 10 MEQ/50 ML PREMIXED IVPB FOR PERIPHERAL LINE IV SCH (09:54)
[2024-05-28 11:30] LABS: APPEARANCE,URINE SLIGHTLY CLOUDY (CLEAR); BILIRUBIN,URINE NEGATIVE (NEGATIVE); BLOOD, URINE 3+ Ery/uL (NEGATIVE); COLOR,URINE RED (YELLOW); KETONES,URINE NEGATIVE (NEGATIVE); LEUKOCYTE ESTERASE ,URINE NEGATIVE (NEGATIVE); NITRITE, URINE NEGATIVE (NEGATIVE); PROTEIN,URINE 2+ mg/dl (NEGATIVE); UGLUCOSE NEGATIVE (NEGATIVE); UROBILINOGEN,URINE 0.2 EU/dL (0.2)
[2024-05-28] MEDS: Magnesium 1GM/D5W 100ML PREMIX 100 ML IV SCH (11:33)
[2024-05-28 11:46] LABS: RBC,URINE 51-80 /HPF (0-2)
[2024-05-28 11:47] LABS: ADD URINE CULTURE NO; BACTERIA,URINE Rare /HPF (None Seen); SQUAMOUS EPITHELIAL CELL,UR None Seen /HPF (None Seen); WBC,URINE 0-2 /HPF (0-3); YEAST,URINE Few /HPF (None Seen)
[2024-05-28] MEDS: Sodium Phosphate 15 MMOL in IV NS 0.9% 245 ML IV SCH (19:55)
[2024-05-29] VITALS (18 sets, daily range): BP systolic 104–142; BP diastolic 56–80; TEMP 97.5–98; O2SAT 94–100
[2024-05-29] MEDS: OLANZAPINE 10 MG VIAL IM ONE ×2 (00:38→16:40)
[2024-05-29 06:59] LABS: BASOPHILS % (AUTO) 0.5 % (0.0-2.0); EOSINOPHILS # (AUTO) 0.2 K/uL (0.0-0.7); EOSINOPHILS % (AUTO) 2.3 % (0.0-6.0); HEMATOCRIT 28 % (39-51); HEMOGLOBIN 8.9 g/dL (13.5-17.5); LYMPHOCYTES # (AUTO) 0.8 K/uL (0.8-4.8); LYMPHOCYTES % (AUTO) 10.6 % (20.0-44.0); MEAN CORPUSCULAR HEMOGLOBIN 27 PG (26.0-33.0); MEAN CORPUSCULAR HGB CONC 32 g/dl (31.0-36.0); MEAN CORPUSCULAR VOLUME 86 fL (80-96); MONOCYTES # (AUTO) 0.6 K/uL (0.1-1.30); NEUTROPHILS # (AUTO) 5.6 K/uL (1.8-8.9); NEUTROPHILS % (AUTO) 78.6 % (43.0-81.0); PLATELET COUNT (AUTO) 130 K/uL (150-450); RED BLOOD CELL COUNT(AUTO) 3.26 MIL/uL (4.5-6.0); RED CELL DISTRIBUTION WIDTH 17.5 % (11.5-15.0); WHITE BLOOD COUNT (AUTO) 7.2 K/uL (4.3-11.0)
[2024-05-29 07:20] LABS: CALCIUM, SERUM 8.9 mg/dL (8.5-10.1); CARBON DIOXIDE 16 mmol/L (21-32); CHLORIDE 112 mmol/L (98-107); CREATININE 1.1 mg/dL (0.6-1.3); GLUCOSE 107 mg/dL (74-106); MAGNESIUM 1.8 mg/dL (1.8-2.4); SODIUM SERUM 141 mmol/L (136-145); UREA NITROGEN, BLOOD 12 mg/dL (7-18)
[2024-05-29] MEDS: POTASSIUM CL. PREMIX PERIPHER. 50 ML IV SCH (09:43)
[2024-05-29] MEDS: ENOXAPARIN SODIUM 60 MG/0.6 ML DISP.SYRIN SQ SCH (21:11)
[2024-05-30] VITALS (18 sets, daily range): BP systolic 109–148; BP diastolic 55–75; TEMP 97.4–97.7; O2SAT 95–100
[2024-05-30 11:30] LABS: CALCIUM, SERUM 9.1 mg/dL (8.5-10.1); CARBON DIOXIDE 25 mmol/L (21-32); CHLORIDE 112 mmol/L (98-107); CREATININE 1.1 mg/dL (0.6-1.3); GLUCOSE 129 mg/dL (74-106); POTASSIUM 2.8 mmol/L (3.5-5.1); SODIUM SERUM 143 mmol/L (136-145); UREA NITROGEN, BLOOD 11 mg/dL (7-18)
[2024-05-30] MEDS: POTASSIUM CL. PREMIX PERIPHER. 50 ML IV SCH (13:21)
[2024-05-31] VITALS (17 sets, daily range): BP systolic 103–138; BP diastolic 51–86; TEMP 97.6–97.9; O2SAT 99–100
[2024-05-31] MEDS ORDERED: Potassium Chloride 10 MEQ in IV D5W 1,000 ML IV PRN (06:44)
[2024-05-31 06:49] LABS: CALCIUM, SERUM 8.9 mg/dL (8.5-10.1); CARBON DIOXIDE 23 mmol/L (21-32); CHLORIDE 112 mmol/L (98-107); GLUCOSE 97 mg/dL (74-106); POTASSIUM 3.5 mmol/L (3.5-5.1); SODIUM SERUM 141 mmol/L (136-145); UREA NITROGEN, BLOOD 7 mg/dL (7-18)
[2024-05-31] MEDS: IV D5W W/10 MEQ KCL 1L IV PRN (07:24)
[2024-06-01] VITALS (20 sets, daily range): BP systolic 100–124; BP diastolic 55–87; TEMP 98–98.2; O2SAT 95–100
[2024-06-01] MEDS ORDERED: Potassium Chloride 10 MEQ in IV D5W 1,000 ML IV ONE (02:30)
[2024-06-01] MEDS: POTASSIUM CL. PREMIX PERIPHER. 50 ML IV ONE (02:45)
[2024-06-01] MEDS: IV NS 0.9% 250 ML IV ONE (07:07)
[2024-06-01 07:55] LABS: BASOPHILS % (AUTO) 0.5 % (0.0-2.0); EOSINOPHILS # (AUTO) 0.1 K/uL (0.0-0.7); EOSINOPHILS % (AUTO) 1.2 % (0.0-6.0); HEMATOCRIT 27 % (39-51); HEMOGLOBIN 8.2 g/dL (13.5-17.5); LYMPHOCYTES # (AUTO) 1.2 K/uL (0.8-4.8); LYMPHOCYTES % (AUTO) 17.5 % (20.0-44.0); MEAN CORPUSCULAR HEMOGLOBIN 28 PG (26.0-33.0); MEAN CORPUSCULAR HGB CONC 30 g/dl (31.0-36.0); MEAN CORPUSCULAR VOLUME 92 fL (80-96); MONOCYTES # (AUTO) 0.7 K/uL (0.1-1.30); MONOCYTES % (AUTO) 9.7 % (2.0-12.0); NEUTROPHILS # (AUTO) 4.9 K/uL (1.8-8.9); NEUTROPHILS % (AUTO) 71.1 % (43.0-81.0); PLATELET COUNT (AUTO) 128 K/uL (150-450); RED BLOOD CELL COUNT(AUTO) 2.95 MIL/uL (4.5-6.0); RED CELL DISTRIBUTION WIDTH 19.7 % (11.5-15.0); WHITE BLOOD COUNT (AUTO) 6.9 K/uL (4.3-11.0)
[2024-06-01 08:06] LABS: INR 1.46 (0.91-1.10); PARTIAL THROMBOPLASTIN TIME 32.3 SEC (24.3-34.3); PROTHROMBIN TIME 15.1 SECS (9.2-11.1)
[2024-06-01 08:12] LABS: CALCIUM, SERUM 9.1 mg/dL (8.5-10.1); CARBON DIOXIDE 20 mmol/L (21-32); CHLORIDE 109 mmol/L (98-107); CREATININE 1.2 mg/dL (0.6-1.3); GLUCOSE 115 mg/dL (74-106); MAGNESIUM 1.8 mg/dL (1.8-2.4); PHOSPHORUS 3.1 mg/dL (2.5-4.9); POTASSIUM 3.4 mmol/L (3.5-5.1); SODIUM SERUM 137 mmol/L (136-145); UREA NITROGEN, BLOOD 9 mg/dL (7-18)
[2024-06-01] MEDS: IV D5W W/10 MEQ KCL 1L IV SCH (10:23)
[2024-06-01] MEDS ORDERED: JEVITY 1.2 CAL 1,000 ML BOTTLE GT PRN (11:30)
[2024-06-01] MEDS: JEVITY 1.2 CAL 1,000 ML BOTTLE GT PRN (12:42)
[2024-06-02] VITALS (16 sets, daily range): BP systolic 102–113; BP diastolic 48–56; TEMP 97.3–97.9; O2SAT 96–100
[2024-06-02 06:43] LABS: BASOPHILS % (AUTO) 0.5 % (0.0-2.0); EOSINOPHILS # (AUTO) 0.1 K/uL (0.0-0.7); EOSINOPHILS % (AUTO) 1.6 % (0.0-6.0); HEMATOCRIT 21 % (39-51); HEMOGLOBIN 7.1 g/dL (13.5-17.5); LYMPHOCYTES # (AUTO) 0.9 K/uL (0.8-4.8); LYMPHOCYTES % (AUTO) 13.7 % (20.0-44.0); MEAN CORPUSCULAR HEMOGLOBIN 29 PG (26.0-33.0); MEAN CORPUSCULAR HGB CONC 34 g/dl (31.0-36.0); MEAN CORPUSCULAR VOLUME 84 fL (80-96); MONOCYTES # (AUTO) 0.7 K/uL (0.1-1.30); MONOCYTES % (AUTO) 10.2 % (2.0-12.0); PLATELET COUNT (AUTO) 104 K/uL (150-450); RED BLOOD CELL COUNT(AUTO) 2.47 MIL/uL (4.5-6.0); RED CELL DISTRIBUTION WIDTH 18.4 % (11.5-15.0); WHITE BLOOD COUNT (AUTO) 6.8 K/uL (4.3-11.0)
[2024-06-02 07:10] LABS: ALANINE AMINOTRANSFERASE 16 U/L (12-78); ALBUMIN 1.6 g/dL (3.4-5.0); ALKALINE PHOSPHATASE 77 U/L (46-116); ASPARTATE AMINOTRANSFERASE 29 U/L (15-37); BILIRUBIN,TOTAL 0.6 mg/dL (0.2-1.0); CALCIUM, SERUM 9.2 mg/dL (8.5-10.1); CARBON DIOXIDE 20 mmol/L (21-32); CHLORIDE 108 mmol/L (98-107); CREATININE 1.4 mg/dL (0.6-1.3); GLUCOSE 77 mg/dL (74-106); MAGNESIUM 1.7 mg/dL (1.8-2.4); PHOSPHORUS 2.4 mg/dL (2.5-4.9); POTASSIUM 3.6 mmol/L (3.5-5.1); SODIUM SERUM 137 mmol/L (136-145); TOTAL PROTEIN, SERUM 5.2 g/dL (6.4-8.2); UREA NITROGEN, BLOOD 12 mg/dL (7-18)
[2024-06-02] MEDS: MAGNESIUM OXIDE 400 MG TABLET NG ONE (10:15)
[2024-06-02] MEDS: NEUTRA PHOS 1 POWD.PACKET NG ONE (16:58)
[2024-06-02] MEDS: IV D5W W/10 MEQ KCL 1L IV SCH (20:03)
[2024-06-03] VITALS (38 sets, daily range): BP systolic 87–146; BP diastolic 30–103; TEMP 96.5–97.9; O2SAT 94–100
[2024-06-03 08:25] LABS: CALCIUM, SERUM 9.2 mg/dL (8.5-10.1); CARBON DIOXIDE 19 mmol/L (21-32); CHLORIDE 107 mmol/L (98-107); CREATININE 1.2 mg/dL (0.6-1.3); GLUCOSE 130 mg/dL (74-106); SODIUM SERUM 135 mmol/L (136-145); UREA NITROGEN, BLOOD 14 mg/dL (7-18)
[2024-06-03] MEDS: IV NS 0.9% 1,000 ML IV ONE (12:49)
[2024-06-03 13:34] LABS: BASOPHILS % (AUTO) 0.7 % (0.0-2.0); EOSINOPHILS # (AUTO) 0.1 K/uL (0.0-0.7); EOSINOPHILS % (AUTO) 1.9 % (0.0-6.0); HEMATOCRIT 21 % (39-51); LYMPHOCYTES # (AUTO) 0.7 K/uL (0.8-4.8); LYMPHOCYTES % (AUTO) 11.9 % (20.0-44.0); MEAN CORPUSCULAR HEMOGLOBIN 28 PG (26.0-33.0); MEAN CORPUSCULAR HGB CONC 33 g/dl (31.0-36.0); MEAN CORPUSCULAR VOLUME 86 fL (80-96); MONOCYTES # (AUTO) 0.5 K/uL (0.1-1.30); MONOCYTES % (AUTO) 8.5 % (2.0-12.0); NEUTROPHILS # (AUTO) 4.6 K/uL (1.8-8.9); PLATELET COUNT (AUTO) 73 K/uL (150-450); RED CELL DISTRIBUTION WIDTH 19.4 % (11.5-15.0); WHITE BLOOD COUNT (AUTO) 5.9 K/uL (4.3-11.0)
[2024-06-03 13:38] LABS: HEMOGLOBIN 6.8 g/dL (13.5-17.5)
[2024-06-03 13:55] LABS: ABG BASE EXCESS -5.3 mmol/L (-2.0-3.0); ABG OXYGEN SATURATION 97.3 % (94.0-98.0); ABG PCO2 24.8 mmHg (35.0-48.0); ABG PH 7.472 (7.350-7.450); ABG PO2 100.4 mmHg (83.0-108.0); ABG TOTAL HEMOGLOBIN 6.4 G/dL (13.5-17.5); COHb 0.3 % (0.5-1.5); MetHb 0.1 % (0.0-1.5); O2Hb 96.9 % (94.0-97.0); SITE, ABG RIGHT RADIAL
[2024-06-03] MEDS ORDERED: VANCOMYCIN 1 GM in IV D5W 250 ML IV ONE (14:30)
[2024-06-03 14:32] LABS: CALCIUM, SERUM 8.2 mg/dL (8.5-10.1); CARBON DIOXIDE 21 mmol/L (21-32); CHLORIDE 107 mmol/L (98-107); CREATININE 1.2 mg/dL (0.6-1.3); GLUCOSE 80 mg/dL (74-106); POTASSIUM 3.2 mmol/L (3.5-5.1); SODIUM SERUM 134 mmol/L (136-145); UREA NITROGEN, BLOOD 15 mg/dL (7-18)
[2024-06-03 14:48] LABS: LACTIC ACID 2.2 mmol/L (0.4-2.0)
[2024-06-03] MEDS: HYDROCORTISONE SOD SUCCINATE 100 MG/2 ML VIAL IV SCH (15:02)
[2024-06-03] MEDS: VANCOMYCIN HCL 1.25 GM in IV D5W 250 ML IV ONE (16:01)
[2024-06-03] MEDS: IV D5/ 0.9% NACL 1,000 ML IV PRN (17:08)
[2024-06-03 17:16] LABS: EOSINOPHILS % (MANUAL) 3 % (0-4); LYMPHOCYTES % (MANUAL) 8 % (16-48); MONOCYTES % (MANUAL) 7 % (0-11.0); NEUTROPHILS % (MANUAL) 82 (42-76); PLATELET ESTIMATE DECREASED
[2024-06-03 17:17] LABS: ANISOCYTOSIS 1+; OVALOCYTES 1+; ROULEAUX 1+
[2024-06-03 18:31] LABS: BILIRUBIN,DIRECT 0.2 mg/dL (0.0-0.2)
[2024-06-03 18:42] LABS: LACTIC ACID REFLEX 2.1 mmol/L (0.4-1.9)
[2024-06-03] MEDS: POTASSIUM CL. PREMIX PERIPHER. 50 ML IV SCH (21:36)
[2024-06-03] MEDS: POTASSIUM CL. PREMIX PERIPHER. 50 ML ONE (22:49)
[2024-06-04] VITALS (37 sets, daily range): BP systolic 90–142; BP diastolic 33–85; TEMP 97.5–98.6; O2SAT 94–100
[2024-06-04 02:20] LABS: BASOPHILS % (AUTO) 0.1 % (0.0-2.0); EOSINOPHILS % (AUTO) 0.1 % (0.0-6.0); HEMATOCRIT 23 % (39-51); LYMPHOCYTES # (AUTO) 0.3 K/uL (0.8-4.8); LYMPHOCYTES % (AUTO) 6.9 % (20.0-44.0); MEAN CORPUSCULAR HEMOGLOBIN 30 PG (26.0-33.0); MEAN CORPUSCULAR HGB CONC 35 g/dl (31.0-36.0); MEAN CORPUSCULAR VOLUME 85 fL (80-96); MONOCYTES # (AUTO) 0.1 K/uL (0.1-1.30); NEUTROPHILS # (AUTO) 4.4 K/uL (1.8-8.9); NEUTROPHILS % (AUTO) 90.9 % (43.0-81.0); PLATELET COUNT (AUTO) 76 K/uL (150-450); RED BLOOD CELL COUNT(AUTO) 2.73 MIL/uL (4.5-6.0); RED CELL DISTRIBUTION WIDTH 18.2 % (11.5-15.0); WHITE BLOOD COUNT (AUTO) 4.8 K/uL (4.3-11.0)
[2024-06-04 02:31] LABS: ALANINE AMINOTRANSFERASE 12 U/L (12-78); ALKALINE PHOSPHATASE 77 U/L (46-116); ASPARTATE AMINOTRANSFERASE 26 U/L (15-37); BILIRUBIN,TOTAL 0.5 mg/dL (0.2-1.0); CALCIUM, SERUM 8.2 mg/dL (8.5-10.1); CARBON DIOXIDE 19 mmol/L (21-32); CHLORIDE 111 mmol/L (98-107); CREATININE 1.3 mg/dL (0.6-1.3); GLUCOSE 133 mg/dL (74-106); MAGNESIUM 1.5 mg/dL (1.8-2.4); PHOSPHORUS 2.8 mg/dL (2.5-4.9); SODIUM SERUM 137 mmol/L (136-145); TOTAL PROTEIN, SERUM 4.7 g/dL (6.4-8.2); UREA NITROGEN, BLOOD 14 mg/dL (7-18)
[2024-06-04 02:49] LABS: ALBUMIN 1.4 g/dL (3.4-5.0)
[2024-06-04 02:52] LABS: BAND % (MANUAL) 2 % (0.0-5.0); BASOPHILS % (MANUAL) 0 % (0.0-2.0); EOSINOPHILS % (MANUAL) 0 % (0-4); LYMPHOCYTES % (MANUAL) 7 % (16-48); MONOCYTES % (MANUAL) 4 % (0-11.0); NEUTROPHILS % (MANUAL) 87 (42-76); PLATELET ESTIMATE DECREASED
[2024-06-04] MEDS: VANCOMYCIN 750 MG in IV D5W 250 ML IV SCH (02:58)
[2024-06-04] MEDS: ALBUMIN 25% 25 GM in PREMIX 1 EA IV SCH (04:11)
[2024-06-04] MEDS: ALBUMIN 25% 100 ML IV ONE (04:19)
[2024-06-04] MEDS: THERAHONEY GEL 1.5 OZ TUBE TP SCH (08:42)
[2024-06-04] MEDS: MAGNESIUM OXIDE 400 MG TABLET NG ONE (11:01)
[2024-06-04] MEDS: VANCOMYCIN 500 MG in IV D5W 100 ML IV SCH (11:48)
[2024-06-05] VITALS (29 sets, daily range): BP systolic 89–142; BP diastolic 50–116; TEMP 97.5–97.6; O2SAT 94–100
[2024-06-05 04:50] LABS: BASOPHILS % (AUTO) 0.1 % (0.0-2.0); HEMATOCRIT 23 % (39-51); HEMOGLOBIN 7.3 g/dL (13.5-17.5); LYMPHOCYTES # (AUTO) 0.4 K/uL (0.8-4.8); MEAN CORPUSCULAR HEMOGLOBIN 29 PG (26.0-33.0); MEAN CORPUSCULAR HGB CONC 33 g/dl (31.0-36.0); MEAN CORPUSCULAR VOLUME 88 fL (80-96); MONOCYTES # (AUTO) 0.3 K/uL (0.1-1.30); NEUTROPHILS # (AUTO) 6.4 K/uL (1.8-8.9); NEUTROPHILS % (AUTO) 89.9 % (43.0-81.0); PLATELET COUNT (AUTO) 73 K/uL (150-450); RED BLOOD CELL COUNT(AUTO) 2.54 MIL/uL (4.5-6.0); RED CELL DISTRIBUTION WIDTH 19.1 % (11.5-15.0); WHITE BLOOD COUNT (AUTO) 7.2 K/uL (4.3-11.0)
[2024-06-05 05:07] LABS: CALCIUM, SERUM 8.3 mg/dL (8.5-10.1); CARBON DIOXIDE 18 mmol/L (21-32); CHLORIDE 118 mmol/L (98-107); CREATININE 1.2 mg/dL (0.6-1.3); GLUCOSE 99 mg/dL (74-106); MAGNESIUM 1.8 mg/dL (1.8-2.4); SODIUM SERUM 146 mmol/L (136-145); UREA NITROGEN, BLOOD 13 mg/dL (7-18)
[2024-06-05 05:19] LABS: ANISOCYTOSIS 1+; BASOPHILS % (MANUAL) 0 % (0.0-2.0); EOSINOPHILS % (MANUAL) 0 % (0-4); LYMPHOCYTES % (MANUAL) 9 % (16-48); MONOCYTES % (MANUAL) 4 % (0-11.0); NEUTROPHILS % (MANUAL) 87 (42-76); OVALOCYTES 1+; PLATELET ESTIMATE DECREASED
[2024-06-05] MEDS: POTASSIUM CHLORIDE 20 MEQ POWDER PACKET NG SCH (10:03)
== END 2024-06-05 18:32 | disposition left against medical advice (07) | DRG 180 ==
LOC: MED 20:01 → MEDSG1 20:36 → TELE1 05-28 13:29 → MEDSG1 06-01 10:45 → ICU 06-03 14:02
PROVIDERS: ADMIT Nurse Practitioner Family
PROC: 0W9930Z Drainage of Right Pleural Cavity with Drainage Device, Percutaneous Approach (ICD-10-PCS; principal; 2024-05-25)
PROC: 30233N1 Transfusion of Nonautologous Red Blood Cells into Peripheral Vein, Percutaneous Approach (ICD-10-PCS; 2024-06-03)
DX: C34.82 Malignant neoplasm of overlapping sites of left bronchus and lung (principal); E43 Unspecified severe protein-calorie malnutrition; G92.8 Other toxic encephalopathy; J69.0 Pneumonitis due to inhalation of food and vomit; N17.0 Acute kidney failure with tubular necrosis; F03.918 Unspecified dementia, unspecified severity, with other behavioral disturbance; J91.0 Malignant pleural effusion; E87.0 Hyperosmolality and hypernatremia; E87.3 Alkalosis; I48.20 Chronic atrial fibrillation, unspecified; C79.9 Secondary malignant neoplasm of unspecified site; R64 Cachexia; Z68.1 Body mass index [BMI] 19.9 or less, adult; C79.31 Secondary malignant neoplasm of brain; I82.612 Acute embolism and thrombosis of superficial veins of left upper extremity; J44.0 Chronic obstructive pulmonary disease with (acute) lower respiratory infection; J96.10 Chronic respiratory failure, unspecified whether with hypoxia or hypercapnia; D64.9 Anemia, unspecified; D69.6 Thrombocytopenia, unspecified; E03.9 Hypothyroidism, unspecified; E87.6 Hypokalemia; F17.210 Nicotine dependence, cigarettes, uncomplicated; I11.0 Hypertensive heart disease with heart failure; I25.10 Atherosclerotic heart disease of native coronary artery without angina pectoris; I25.2 Old myocardial infarction; M89.8X9 Other specified disorders of bone, unspecified site; R13.10 Dysphagia, unspecified; E66.01 Morbid (severe) obesity due to excess calories; R33.8 Other retention of urine; Z66 Do not resuscitate; Z87.01 Personal history of pneumonia (recurrent); Z87.442 Personal history of urinary calculi; Z95.1 Presence of aortocoronary bypass graft; F29 Unspecified psychosis not due to a substance or known physiological condition; L72.0 Epidermal cyst; I50.9 Heart failure, unspecified; C34.81 Malignant neoplasm of overlapping sites of right bronchus and lung; Z85.21 Personal history of malignant neoplasm of larynx; Z95.0 Presence of cardiac pacemaker; J39.8 Other specified diseases of upper respiratory tract; Z93.0 Tracheostomy status; N40.1 Benign prostatic hyperplasia with lower urinary tract symptoms; Z85.89 Personal history of malignant neoplasm of other organs and systems; Z85.46 Personal history of malignant neoplasm of prostate
CPT/HCPCS: 31720; 36415; 36600; 70450-TC; 71045-TC; 76770-TC; 80048-TC; 80053-TC; 80061-TC; 80076-TC; 80202-TC; 81001; 82248-TC; 82533; 82607-TC; 82803-TC; 83605-TC; 83735-TC; 83921; 84100-TC; 84425; 84443-TC; 85025-TC; 85610-TC; 85730-TC; 86850-TC; 87040-TC; 87081-TC; 87086-TC; 92526; 92611-TC; 93307-TC; 93971-TC; 94640-TC; 94760-TC; 94761-TC; 94762-TC; 94799-TC; A4216; A4217; A4223; A6403; A9563; G0378; J0690; J0692; J1650; J1720; J2060; J2405; J2470; J2704; J2765; J3010; J3370; J3371; J3475; J3480; J3490; J7030; J7040; J7042; J7050; J7060; J7070; J7120; P9016; P9047